=== PATIENT | male | born 1955 | race Caucasian/White ===

== ENCOUNTER 2016-05-18 14:58 | Emergency (ER) | payer MEDICARE, MEDICAID ==
[~2016-05-18] VITALS: Ht 182.9 cm; Wt 109.1 kg
[~2016-05-18 14:58] MED LIST: CYMBALTA 20MG20 MG; DESYREL 50MG50 MG; FLOMAX 0.40.4 MG/CAP; KLONOPIN WAFE0.25 MG; LASIX 20MG TABL20 MG; LYRICA 25MG CAP25 MG; PRINIVIL2.5 MG; PROTONIX 40MG T40 MG PO; TOPROL XL 25MG25 MG; WELLBUTRIN 75MG75 MG PO
[2016-05-18 15:00] VITALS: TEMP 99
[2016-05-18 15:55] LABS: BASO % 0.5 % (0.0-2.0); EOS # 0.2 (0.0-0.7); EOS % 2.3 % (0-4.0); GRAN % 68.6 % (42.2-75.2); HEMATOCRIT 47.7 % (42.0-52.0); HEMOGLOBIN 16.3 g/dl (13.5-18.0); LYMPH # 1.7 (1.2-3.4); LYMPH % 18.8 % (20.0-51.0); MEAN CELL VOLUME 86 fl (80.0-100.0); MEAN CORPUSCULAR HEMOGLOBIN 29 pg (27.0-31.0); MEAN CORPUSCULAR HGB CONC 34 g/dl (33.0-37.0); MEAN PLATELET VOLUME 12.3 fl (7.4-10.4); MONO # 0.8 (0.1-0.6); MONO % 9.2 % (1.7-9.3); PLATELET COUNT 218 K/mm3 (130-400); RED BLOOD COUNT 5.58 M/mm3 (4.20-5.60); REDCELL DISTRIBUTION WIDTH-CV 14.1 % (11.5-14.5); WHITE BLOOD COUNT 8.8 K/mm3 (4.8-10.8)
[2016-05-18 16:10] LABS: ACETAMINOPHEN < 10 ug/mL (10-30); ADJUSTED CALCIUM 9.5 mg/dL (8.4-10.2); ALANINE AMINOTRANSFERASE 25 U/L (21-72); ALBUMIN 4.5 gm/dL (3.5-5.0); ALKALINE PHOSPHATASE 125 U/L (50-136); ANION GAP 19 mmol/L (7-16); BILIRUBIN,TOTAL 1.4 mg/dL (0.0-1.0); BLOOD UREA NITROGEN 13 mg/dL (9-20); CALCIUM 9.9 mg/dL (8.4-10.2); CARBON DIOXIDE 22 mmol/L (22-30); CHLORIDE 100 mmol/L (98-107); CREATININE, serum 0.85 mg/dL (0.66-1.25); GLUCOSE 100 mg/dL (74-106); POTASSIUM 3.8 mmol/L (3.4-5.0); SALICYLATE < 1.0 mg/dL; SODIUM 140 mmol/L (137-145); TOTAL PROTEIN 8.1 gm/dL (6.4-8.2)
[2016-05-18 16:14] LABS: AMPHETAMINE URINE NEGATIVE; BARBITURATES URINE NEGATIVE; BENZODIAZEPINES URINE NEGATIVE; BUPRENORPHINE URINE NEGATIVE; METHADONE URINE NEGATIVE; OPIATES URINE NEGATIVE; OXYCODONE URINE NEGATIVE; PHENCYCLIDINE URINE NEGATIVE; PROPOXYPHENE URINE NEGATIVE; THC CANNABINOIDS URINE NEGATIVE
[2016-05-18 21:00] VITALS: BP 136/89; PULSE 110
== END 2016-05-18 21:05 | disposition home or self-care (01) ==
LOC: COL.ER 14:58
PROVIDERS: Emergency Medicine
DX: F23 Brief psychotic disorder (principal); F32.9 Major depressive disorder, single episode, unspecified; R45.851 Suicidal ideations; Z99.3 Dependence on wheelchair
CPT/HCPCS: J2060